=== PATIENT | female | born 1935 | race Caucasian/White ===

== ENCOUNTER 2017-12-18 21:57 | Emergency (ER) | payer MEDICARE, BC ==
[~2017-12-18] VITALS: Ht 162.6 cm; Wt 52.6 kg
[2017-12-18] MEDS ORDERED: IV NORMAL SALINE 1000 ML BAG IV ONE (22:45)
[2017-12-18] MEDS ORDERED: METO50TA7 PO (23:32)
[2017-12-18] MEDS ORDERED: LEVO100T10 PO (23:32)
[2017-12-18] MEDS ORDERED: LEVO88TA5 PO (23:32)
[2017-12-18] MEDS ORDERED: ROSU10TA PO (23:32)
[2017-12-18] MEDS ORDERED: DOCU-141 PO (23:32)
[2017-12-18] MEDS ORDERED: LOSA25TA13 PO (23:32)
[2017-12-18] MEDS ORDERED: ASPI81TA31 PO (23:32)
--- NOTE | 2017-12-18 23:39 | NUR ---
PT IN BED RESTING QUIETLY WITH EYES CLOSED. PT IS POSITIONED FOR COMFORT. BED IS IN THE LOWEST POSITION WITH SIDERAILS UP. IV NS CURRENTLY RUNNING. PT'S VISITOR AT BEDSIDE. PT IS CALM AND COOPERATIVE. NO SIGNS OF DISTRESS WITNESSED AT THIS TIME.
--- NOTE | 2017-12-19 00:28 | NUR ---
PT IN BED RESTING QUIETLY. NO SIGNS OF DISTRESS WITNESSED AT THIS TIME.
[2017-12-19] MEDS ORDERED: IV NORMAL SALINE 1000 ML BAG IV ONE (01:00)
--- NOTE | 2017-12-19 01:40 | NUR ---
Patient does not wish to proceed with medical care recommended by Dr. Childers. Patient given information related to possible complications, up to and including , which could occur as a result of leaving the hospital at this time. Patient verbalizes understanding of risks involved due to leaving against medical advice. Patient has signed AMA form.
[2017-12-19 02:19] VITALS: BP 125/55
== END 2017-12-19 01:40 | disposition home or self-care (01) ==
LOC: ER 21:59
DX: R53.1 Weakness (principal); I10 Essential (primary) hypertension; Z90.710 Acquired absence of both cervix and uterus
CPT/HCPCS: 93005; A4663; J7030